=== PATIENT | male | born 1975 | race Two or more races ===

== ENCOUNTER 2019-06-17 22:04 | Emergency (ER) | payer OTHER ==
[~2019-06-17] VITALS: Ht 165.1 cm; Wt 70.3 kg
[2019-06-17] MEDS ORDERED: KETOROLAC 30 MG/1 ML ONE (23:00)
[2019-06-17] MEDS ORDERED: KETOROLAC 30 MG/1 ML IVPush ONE (23:00)
[2019-06-17] MEDS ORDERED: SODIUM CHLORIDE 0.9% 1,000ML IVBOLUS ONE (23:00)
[2019-06-17] MEDS ORDERED: ACETAMINOPHEN 325 MG TABLET ONE (23:00)
[2019-06-17] MEDS ORDERED: SODIUM CHLORIDE FLUSH 10ML SYR IVF ONE (23:00)
[2019-06-17] MEDS ORDERED: ACETAMINOPHEN 325 MG TABLET PO ONE (23:00)
[2019-06-17 23:18] VITALS: BP 113/68
--- NOTE | 2019-06-17 23:26 | NUR ---
Rn to bedside patient ambulated, reports being diagnoses about 5 days earlier with flu. Patient still reports feeling symptoms of flu. Report having a fever but patient is low grade at best while wearing multiple layers. RN returned to bedside, started iv per protocol and adminstered medications (see eMAR) Awaiting lab results
== END 2019-06-17 23:52 | disposition home or self-care (01) ==
LOC: ED 23:30
DX: J10.1 Influenza due to other identified influenza virus with other respiratory manifestations (principal)
CPT/HCPCS: 71046; 87081; 87880; 96374; 99284; J1885; J7030

== ENCOUNTER 2019-06-20 09:01 | Emergency (ER) | payer OTHER ==
[~2019-06-20] VITALS: Ht 165.1 cm; Wt 66.9 kg
[2019-06-20 09:03] VITALS: BP 123/81
== END 2019-06-20 10:17 | disposition home or self-care (01) ==
LOC: MERGE 09:33 → ED 09:33
DX: J18.0 Bronchopneumonia, unspecified organism (principal)
CPT/HCPCS: 71046; 99283